=== PATIENT | male | born 1975 | race Caucasian/White ===

== ENCOUNTER 2021-01-01 11:19 | Inpatient (IN) ==
[2021-01-01 12:04] LABS: Basophils # 0.1 10*3/uL (0.0-0.2); Basophils % 0.8 % (0.0-0.8); Eosinophils % 0.4 % (0.00-10.9); Hematocrit 47.6 VOL% (42.0-52.0); Hemoglobin 14.7 GM/DL (14.0-18.0); Immature Granulocytes % 0.2 %; Immature Granulocytes Absolute 0.02 #; Mean Corpuscular HGB Conc 30.9 GM/DL (32-36); Mean Platelet Volume 11.1 FL (9.6-12.0); Monocytes % 12.5 % (1.7-12.7); Neutrophils % 76.1 % (38.7-73.9); Platelet Count 252 T/CUMM (130-400); Red Blood Count 5.12 MC/CUMM (3.8-5.5); Red Cell Distribution Width 14.5 % (9.3-17.3); White Blood Count 10.2 T/CUMM (4-12)
[2021-01-01] MEDS ORDERED: niCARdipine 25 MG/10 ML VIAL IV ONE (12:05)
[2021-01-01] MEDS: niCARdipine INJ 25 MG in SODIUM CHLORIDE 0.9% 240 ML IV SCH ×2 (12:24→18:21)
[2021-01-01 12:29] LABS: Albumin 3.6 G/DL (3.4-5.0); Bilirubin,Total 0.5 MG/DL (0.20-1.00); Potassium 4.3 MMOL/L (3.5-5.1)
[2021-01-01] MEDS ORDERED: ALBUTEROL 2.5 MG/3 ML NEB RESP TX PRN (13:34)
[2021-01-01] MEDS ORDERED: ONDANSETRON 4 MG/2 ML VIAL IV PRN (13:34)
[2021-01-01] MEDS ORDERED: MORPHINE 2 MG/1 ML SYRINGE IV PRN (13:34)
[2021-01-01] MEDS ORDERED: PANTOPRAZOLE 40 MG VIAL IV SCH (14:00)
[2021-01-01 15:00] VITALS: BP 164/86
[2021-01-01] MEDS: FUROSEMIDE 40 MG/4 ML VIAL IV SCH ×2 (15:20→16:29)
[2021-01-01] MEDS: ENOXAPARIN 40 MG/0.4 ML SYRINGE SUBCUT SCH (15:20)
[2021-01-01] MEDS: cloNIDine 0.1 MG TABLET PO SCH ×2 (15:36→21:05)
[2021-01-01 15:54] LABS: Bilirubin,Urine Negative (Negative); Blood, Urine Moderate mg/dL (Negative); Glucose,Urine (UA) Negative (Negative); Ketones,Urine Negative (Negative); Nitrite,Urine Negative (Negative); Protein,Urine Negative; RBC,Urine 1 /HPF (0-4); Urine Appearance CLEAR (Clear); Urine Color Colorless (Yellow); Urine Specific Gravity 1.016 (1.001-1.035); Urine Urobilinogen < 2.0 EU/DL (0.2-1.0)
[2021-01-01] MEDS ORDERED: ACETAMINOPHEN 325 MG TABLET PO PRN (19:59)
[2021-01-01] MEDS ORDERED: METOPROLOL SUCCINATE XL 50 MG TABLET PO SCH (21:00)
[2021-01-02 06:09] LABS: Basophils # 0.1 10*3/uL (0.0-0.2); Basophils % 0.8 % (0.0-0.8); Eosinophils # 0.1 10*3/uL (0.0-0.87); Eosinophils % 1.6 % (0.00-10.9); Hemoglobin 14.4 GM/DL (14.0-18.0); Immature Granulocytes % 0.4 %; Immature Granulocytes Absolute 0.03 #; Lymphocytes # 1.1 10*3/uL (1.4-4.0); Lymphocytes % 13.1 % (21.2-54.2); Mean Corpuscular HGB Conc 31.3 GM/DL (32-36); Mean Corpuscular Volume 92.6 FL (87-102); Mean Platelet Volume 11.5 FL (9.6-12.0); Monocytes % 17.1 % (1.7-12.7); Platelet Count 254 T/CUMM (130-400); Red Blood Count 4.97 MC/CUMM (3.8-5.5); Red Cell Distribution Width 14.6 % (9.3-17.3); White Blood Count 8.4 T/CUMM (4-12)
[2021-01-02 06:26] LABS: Calcium 8.7 MG/DL (8.5-10.1); Osmolality,Calculated 274.8 MOS/KG (273-304); Potassium 3.9 MMOL/L (3.5-5.1)
[2021-01-02 06:39] LABS: Eosinophils 1 % (0-10); Lymphocytes 12 % (20-55); Platelet Estimate Adequate; Segmented Neutrophils 73 % (50-85); Total Cells Counted 100
[2021-01-02] MEDS: FUROSEMIDE 40 MG/4 ML VIAL IV SCH (07:54)
[2021-01-02] MEDS: cloNIDine 0.1 MG TABLET PO SCH (08:00)
[2021-01-02] MEDS ORDERED: lisinopriL 10 MG TABLET PO SCH (09:00)
[2021-01-02] MEDS ORDERED: ROSUVASTATIN 20 MG TABLET PO SCH (09:00)
[2021-01-02] MEDS ORDERED: NIFEdipine 10 MG CAPSULE PO PRN (09:09)
[2021-01-02] MEDS: ENOXAPARIN 40 MG/0.4 ML SYRINGE SUBCUT SCH (14:19)
[2021-01-02] MEDS ORDERED: FUROSEMIDE 80 MG TABLET PO SCH (16:00)
[2021-01-03] MEDS ORDERED: PANTOPRAZOLE 40 MG TABLET PO SCH (09:00)
[2021-01-03] MEDS ORDERED: lisinopriL 10 MG TABLET PO SCH (09:00)
== END 2021-01-02 16:23 | disposition left against medical advice (07) | DRG 291 ==
LOC: N.ED 11:19 → N.EDINP 13:34 → N.CC 14:58
PROVIDERS: ADMIT Internal Medicine; ATTEND Internal Medicine

== ENCOUNTER 2021-04-25 16:32 | Inpatient (IN) ==
[2021-04-25] MEDS ORDERED: diphenhydrAMINE 50 MG/1 ML VIAL ONE (17:04)
[2021-04-25] MEDS ORDERED: LORazepam 2 MG/1 ML VIAL ONE (17:04)
[2021-04-25] MEDS ORDERED: SODIUM CHLORIDE 0.9% 1,000 ML IV STA ×2 (17:14→19:18)
[2021-04-25] MEDS ORDERED: DILTIAZEM 50 MG/10 ML VIAL IV STA (17:14)
[2021-04-25] MEDS ORDERED: ALBUTEROL/IPRATROPIUM 3 ML NEB RESP TX STA (17:22)
[2021-04-25 17:25] LABS: Basophils # 0.1 10*3/uL (0.0-0.2); Basophils % 0.7 % (0.0-0.8); Eosinophils # 0.1 10*3/uL (0.0-0.87); Eosinophils % 0.5 % (0.00-10.9); Hematocrit 37.3 VOL% (42.0-52.0); Hemoglobin 11.8 GM/DL (14.0-18.0); Immature Granulocytes % 0.4 %; Immature Granulocytes Absolute 0.06 #; Lymphocytes % 12.6 % (21.2-54.2); Mean Corpuscular HGB Conc 31.6 GM/DL (32-36); Mean Corpuscular Volume 90.1 FL (87-102); Mean Platelet Volume 10.9 FL (9.6-12.0); Monocytes % 10.8 % (1.7-12.7); Platelet Count 318 T/CUMM (130-400); Red Blood Count 4.14 MC/CUMM (3.8-5.5); Red Cell Distribution Width 15.9 % (9.3-17.3); White Blood Count 15.6 T/CUMM (4-12)
[2021-04-25 17:37] LABS: INR 1.1; PT Patient Result 12.1 SECS (10.5-12.0); Partial Thromboplastin Time 27.6 SECS (23.8-32.1)
[2021-04-25] MEDS ORDERED: diphenhydrAMINE 50 MG/1 ML VIAL IV STA (17:40)
[2021-04-25] MEDS ORDERED: LORazepam 2 MG/1 ML VIAL IV STA ×2 (17:40→19:13)
[2021-04-25 17:44] LABS: Alanine Aminotransferase 28 U/L (16-61); Albumin 3.4 G/DL (3.4-5.0); Alkaline Phosphatase 129 U/L (45-117); Amylase 40 U/L (25-115); Aspartate Amino Transferase 30 U/L (0-37); Blood Urea Nitrogen 31 MG/DL (7-18); Calcium 9.3 MG/DL (8.5-10.1); Carbon Dioxide 30 MMOL/L (21-32); Estimated Glom Filtration Rate 40 ML/MIN; Glucose 114 MG/DL (74-106); Osmolality,Calculated 286.4 MOS/KG (273-304); Potassium 4.1 MMOL/L (3.5-5.1); Sodium 140 MMOL/L (136-145); Total Protein 7.5 G/DL (6.4-8.2)
[2021-04-25 17:45] LABS: High Sensitive Troponin I* 27.5 ng/L (0-78)
[2021-04-25 18:38] LABS: Bilirubin,Urine Negative (Negative); Blood, Urine Negative (Negative); Glucose,Urine (UA) Negative (Negative); Ketones,Urine Negative (Negative); Nitrite,Urine Negative (Negative); Protein,Urine 30 MG/DL; Urine Appearance Clear (Clear); Urine Color Yellow (Yellow); Urine Specific Gravity 1.015 (1.001-1.035); Urine Urobilinogen 0.2 EU/DL (<2.0); Urine pH 5.5 (4.5-8.0)
[2021-04-25 18:41] LABS: Hyaline Casts,Urine 20 /LPF (0-3); Mucus,Urine Occasional /LPF (Occasional); RBC,Urine 38 /HPF (0-4); Squamous Epithelial Cell,Urine Occasional /HPF (0-10)
[2021-04-25 19:05] LABS: Barbiturates Screen,Urine Negative (Negative); Benzodiazepines Screen,Urine Negative (Negative); Cannabinoid Screen,Urine Negative (Negative); Opiate Screen,Urine Negative (Negative); Phencyclidine Screen,Urine Negative (Negative)
[2021-04-25] MEDS ORDERED: PIPERACILLIN/TAZOBACTAM 3,375 MG in SODIUM CHLORIDE 0.9% 100 ML IV STA (19:10)
[2021-04-25] MEDS ORDERED: MAGNESIUM SULF RIDER 1 GM/100 ML PREMIX IV STA (19:18)
[2021-04-25] MEDS: ENOXAPARIN 40 MG/0.4 ML SYRINGE SUBCUT SCH (20:30)
[2021-04-25] MEDS: PIPERACILLIN/TAZOBACTAM 3,375 MG in SODIUM CHLORIDE 0.9% 100 ML IV SCH (20:47)
[2021-04-25 21:08] LABS: ABG Base Excess 2.9 MMOL/L (-2.5-2.5); ABG Oxygen Saturation 95.7 % (95-100); ABG PCO2 51.5 MM HG (35-48); ABG PH 7.362 (7.35-7.45); ABG PO2 80.1 MM HG (80-95); ABG TCO2 26.5 MMOL/L (23-27)
[2021-04-25] MEDS ORDERED: OLANZapine 10 MG VIAL IM ONE (21:43)
[2021-04-25] MEDS ORDERED: diphenhydrAMINE 50 MG/1 ML VIAL IV PRN (22:01)
[2021-04-25] MEDS ORDERED: SODIUM CHLORIDE 0.9% 1,000 ML IV ONE (22:01)
[2021-04-25] MEDS ORDERED: LORazepam 2 MG/1 ML VIAL IV PRN (22:01)
[2021-04-25] MEDS ORDERED: MAGNESIUM SULF RIDER 2 GM/50 ML PREMIX IV ONE (22:01)
[2021-04-25] MEDS: DILTIAZEM INJ 100 MG in SODIUM CHLORIDE 0.9% 100 ML IV SCH (22:20)
[2021-04-25] MEDS ORDERED: DILTIAZEM INJ 100 MG in SODIUM CHLORIDE 0.9% 100 ML IV SCH (22:30)
[2021-04-25] MEDS ORDERED: SODIUM CHLORIDE 0.9% 1,000 ML IV SCH (22:30)
[2021-04-26 02:26] LABS: ABG Base Excess 1.5 MMOL/L (-2.5-2.5); ABG HCO3 25.7 MMOL/L (20-26); ABG PCO2 55.7 MM HG (35-48); ABG PH 7.319 (7.35-7.45); ABG PO2 90.4 MM HG (80-95); ABG TCO2 26.2 MMOL/L (23-27)
[2021-04-26] MEDS: PIPERACILLIN/TAZOBACTAM 3,375 MG in SODIUM CHLORIDE 0.9% 100 ML IV SCH ×3 (03:53→20:01)
[2021-04-26 04:20] LABS: Basophils # 0.1 10*3/uL (0.0-0.2); Basophils % 0.4 % (0.0-0.8); Eosinophils # 0.2 10*3/uL (0.0-0.87); Eosinophils % 1.3 % (0.00-10.9); Hematocrit 33.2 VOL% (42.0-52.0); Hemoglobin 10.3 GM/DL (14.0-18.0); Immature Granulocytes % 0.5 %; Immature Granulocytes Absolute 0.06 #; Lymphocytes # 1.1 10*3/uL (1.4-4.0); Lymphocytes % 8.8 % (21.2-54.2); Mean Platelet Volume 10.6 FL (9.6-12.0); Monocytes % 2.3 % (1.7-12.7); Neutrophils % 86.7 % (38.7-73.9); Platelet Count 215 T/CUMM (130-400); Red Blood Count 3.69 MC/CUMM (3.8-5.5); Red Cell Distribution Width 16.1 % (9.3-17.3); White Blood Count 12.8 T/CUMM (4-12)
[2021-04-26 04:39] LABS: Albumin 2.5 G/DL (3.4-5.0); Bilirubin,Total 0.5 MG/DL (0.20-1.00); Calcium 8.4 MG/DL (8.5-10.1); Osmolality,Calculated 280.5 MOS/KG (273-304); Potassium 3.1 MMOL/L (3.5-5.1); Total Protein 6.3 G/DL (6.4-8.2)
[2021-04-26 05:05] LABS: HIV Antigen/Antibody Result Nonreactive (Nonreactive)
[2021-04-26] MEDS: DILTIAZEM INJ 100 MG in SODIUM CHLORIDE 0.9% 100 ML IV SCH ×2 (07:33→19:44)
[2021-04-26] MEDS ORDERED: SODIUM CHLORIDE 0.45% 1,000 ML IV SCH (08:00)
[2021-04-26] MEDS: POTASSIUM CHLORIDE RIDER 10 MEQ/100 ML PREMIX IV SCH ×4 (08:34→13:34)
[2021-04-26] MEDS: LACTATED RINGERS 1,000 ML IV SCH ×2 (08:34→21:07)
[2021-04-26] MEDS: APIXABAN 5 MG TABLET PO SCH ×2 (13:35→20:00)
[2021-04-26] MEDS: POTASSIUM BICARB EFFERVESCENT 20 MEQ TAB.EFF PO SCH (13:35)
[2021-04-26] MEDS: PANTOPRAZOLE 40 MG TABLET PO SCH (13:35)
[2021-04-26] MEDS: MAGNESIUM OXIDE 400 MG TABLET PO SCH (13:35)
[2021-04-26] MEDS: carvediloL 25 MG TABLET PO SCH ×2 (13:35→17:25)
[2021-04-26] MEDS: CHOLECALCIFEROL 5,000 UNIT TABLET PO SCH (13:36)
[2021-04-26] MEDS ORDERED: DILTIAZEM 30 MG TABLET PO SCH (15:00)
[2021-04-26] MEDS: DILTIAZEM 30 MG TABLET PO SCH ×2 (15:55→20:00)
[2021-04-26] MEDS: ENOXAPARIN 40 MG/0.4 ML SYRINGE SUBCUT SCH (20:00)
[2021-04-27] MEDS: DILTIAZEM 30 MG TABLET PO SCH ×3 (03:01→16:24)
[2021-04-27] MEDS: PIPERACILLIN/TAZOBACTAM 3,375 MG in SODIUM CHLORIDE 0.9% 100 ML IV SCH (03:01)
[2021-04-27 03:57] LABS: Basophils # 0.1 10*3/uL (0.0-0.2); Basophils % 0.6 % (0.0-0.8); Eosinophils # 0.5 10*3/uL (0.0-0.87); Eosinophils % 5.2 % (0.00-10.9); Hematocrit 34.1 VOL% (42.0-52.0); Hemoglobin 10.3 GM/DL (14.0-18.0); Immature Granulocytes % 0.4 %; Immature Granulocytes Absolute 0.04 #; Lymphocytes # 0.9 10*3/uL (1.4-4.0); Lymphocytes % 8.8 % (21.2-54.2); Mean Corpuscular HGB Conc 30.2 GM/DL (32-36); Mean Corpuscular Volume 92.9 FL (87-102); Mean Platelet Volume 10.6 FL (9.6-12.0); Monocytes % 6.4 % (1.7-12.7); Neutrophils % 78.6 % (38.7-73.9); Platelet Count 198 T/CUMM (130-400); Red Blood Count 3.67 MC/CUMM (3.8-5.5); Red Cell Distribution Width 16.5 % (9.3-17.3); White Blood Count 9.9 T/CUMM (4-12)
[2021-04-27 04:23] LABS: Calcium 8.5 MG/DL (8.5-10.1); Osmolality,Calculated 283.5 MOS/KG (273-304); Potassium 3.7 MMOL/L (3.5-5.1)
[2021-04-27] MEDS: LACTATED RINGERS 1,000 ML IV SCH (04:53)
[2021-04-27] MEDS: CHOLECALCIFEROL 5,000 UNIT TABLET PO SCH (09:01)
[2021-04-27] MEDS: APIXABAN 5 MG TABLET PO SCH (09:01)
[2021-04-27] MEDS: POTASSIUM BICARB EFFERVESCENT 20 MEQ TAB.EFF PO SCH (09:01)
[2021-04-27] MEDS: PANTOPRAZOLE 40 MG TABLET PO SCH (09:01)
[2021-04-27 09:02] VITALS: BP 126/85
[2021-04-27] MEDS: carvediloL 25 MG TABLET PO SCH (09:02)
[2021-04-27] MEDS: MAGNESIUM OXIDE 400 MG TABLET PO SCH (09:06)
[2021-04-27] MEDS ORDERED: FUROSEMIDE 40 MG/4 ML VIAL IV ONE ×2 (09:18→09:27)
== END 2021-04-27 15:55 | disposition left against medical advice (07) | DRG 894 ==
LOC: N.ED 16:32 → N.CC 19:44
PROVIDERS: ADMIT Emergency Medicine; ATTEND Emergency Medicine

== ENCOUNTER 2021-09-18 10:15 | Inpatient (IN) ==
[2021-09-18] MEDS ORDERED: DILTIAZEM 25 MG/5 ML VIAL IV STA (10:42)
[2021-09-18] MEDS ORDERED: FUROSEMIDE 40 MG/4 ML VIAL IV STA (10:42)
[2021-09-18] MEDS ORDERED: MAGNESIUM SULF RIDER 2 GM/50 ML PREMIX IV STA (10:42)
[2021-09-18] MEDS ORDERED: DILTIAZEM INJ 100 MG in SODIUM CHLORIDE 0.9% 100 ML IV SCH (11:00)
[2021-09-18 11:26] LABS: INR 1.1; PT Patient Result 11.7 SECS (10.1-12.1); Partial Thromboplastin Time 25.4 SECS (23.7-32.9)
[2021-09-18 11:33] LABS: Basophils # 0.1 10*3/uL (0.0-0.2); Basophils % 1.2 % (0.0-0.8); Eosinophils # 0.2 10*3/uL (0.0-0.87); Eosinophils % 3.2 % (0.00-10.9); Hematocrit 41.4 VOL% (42.0-52.0); Immature Granulocytes % 0.2 %; Immature Granulocytes Absolute 0.01 #; Lymphocytes # 1.1 10*3/uL (1.4-4.0); Lymphocytes % 19.4 % (21.2-54.2); Mean Corpuscular Volume 88.7 FL (87-102); Mean Platelet Volume 10.9 FL (9.6-12.0); Monocytes % 18.3 % (1.7-12.7); Neutrophils % 57.7 % (38.7-73.9); Platelet Count 290 T/CUMM (130-400); Red Blood Count 4.67 MC/CUMM (3.8-5.5); White Blood Count 5.7 T/CUMM (4-12)
[2021-09-18 11:37] LABS: Anisocytosis 1+; Band Neutrophils 1 % (0-10); Eosinophils 6 % (0-10); Lymphocytes 19 % (20-55); Platelet Estimate Normal; Poikilocytosis Slight; Total Cells Counted 100
[2021-09-18 11:38] LABS: Macrocytosis Slight; Ovalocytes Few
[2021-09-18 11:41] LABS: Bilirubin,Total 0.9 MG/DL (0.20-1.00); Calcium 9.2 MG/DL (8.5-10.1); Osmolality,Calculated 279.5 MOS/KG (273-304); Potassium 3.6 MMOL/L (3.5-5.1); Thyroid Stimulating Hormone 6.94 uIU/ml (0.358-3.74); Total Protein 8.2 G/DL (6.4-8.2)
[2021-09-18 11:42] LABS: Bilirubin,Urine Negative (Negative); Blood, Urine Trace mg/dL (Negative); Glucose,Urine (UA) Negative (Negative); Ketones,Urine Negative (Negative); Mucus,Urine Occasional /LPF (Occasional); Nitrite,Urine Negative (Negative); Protein,Urine Negative (Negative); RBC,Urine 1 /HPF (0-4); Squamous Epithelial Cell,Urine Occasional /HPF (0-10); Urine Appearance Clear (Clear); Urine Color Yellow (Yellow); Urine Urobilinogen 0.2 eU/dL (<2.0)
[2021-09-18 11:52] LABS: Barbiturates Screen,Urine Negative (Negative); Benzodiazepines Screen,Urine Negative (Negative); Cannabinoid Screen,Urine Negative (Negative); Opiate Screen,Urine Negative (Negative); Phencyclidine Screen,Urine Negative (Negative)
[2021-09-18] MEDS ORDERED: GLUCAGON 1 MG VIAL IM PRN (13:19)
[2021-09-18] MEDS ORDERED: DEXTROSE 10% 250 ML BAG IV PRN (13:19)
[2021-09-18 14:01] LABS: Arterial Base Excess iSTAT 7 MMOL/L (-2.5-2.5); Arterial Bicarbonate iSTAT 33.5 MMOL/L (20-26); Arterial O2 Saturation iSTAT 97 % (95-100); Arterial PCO2 iSTAT 56 MM HG (35-48); Arterial PO2 iSTAT 89 MM HG (80-95); Arterial Total CO2 iSTAT 35 MMO/L (23-27); Arterial pH iSTAT 7.386 (7.35-7.45)
[2021-09-18] MEDS: cefTRIAXone 1,000 MG in SODIUM CHLORIDE 0.9% 100 ML IV SCH (14:53)
[2021-09-18] MEDS: carvediloL 25 MG TABLET PO SCH ×2 (14:53→23:24)
[2021-09-18] MEDS: INSULIN LISPRO 100 UNIT/ML SUBCUT SCH (17:30)
[2021-09-18] MEDS: FUROSEMIDE 40 MG/4 ML VIAL IV SCH (17:31)
[2021-09-18] MEDS: AZITHROMYCIN INJ 500 MG in SODIUM CHLORIDE 0.9% 250 ML IV SCH (17:31)
[2021-09-18] MEDS: ATORVASTATIN 40 MG TABLET PO SCH (22:09)
[2021-09-18] MEDS: FAMOTIDINE 20 MG TABLET PO SCH (22:09)
[2021-09-18] MEDS: APIXABAN 5 MG TABLET PO SCH (22:09)
[2021-09-18] MEDS: SACUBITRIL/VALSARTAN 49-51 MG TABLET PO SCH (22:09)
[2021-09-18] MEDS: LACTULOSE 20 GM/30 ML UDCUP PO SCH (23:24)
[2021-09-19] MEDS: INSULIN LISPRO 100 UNIT/ML SUBCUT SCH ×4 (00:30→18:09)
[2021-09-19] MEDS: FUROSEMIDE 40 MG/4 ML VIAL IV SCH ×4 (02:00→22:30)
[2021-09-19 06:40] LABS: Albumin 2.7 G/DL (3.4-5.0); Bilirubin,Direct 0.56 MG/DL (0.0-0.20); Bilirubin,Indirect 0.4 MG/DL (0.0-1.0); Calcium 8.7 MG/DL (8.5-10.1); Osmolality,Calculated 286.4 MOS/KG (273-304); Potassium 3.4 MMOL/L (3.5-5.1); Risk Ratio 2.71; Total Protein 7.4 G/DL (6.4-8.2); VLDL Cholesterol 13.4 MG/DL
[2021-09-19 06:50] LABS: Basophils # 0.1 10*3/uL (0.0-0.2); Basophils % 1.3 % (0.0-0.8); Eosinophils # 0.1 10*3/uL (0.0-0.87); Eosinophils % 2.2 % (0.00-10.9); Hematocrit 38.9 VOL% (42.0-52.0); Immature Granulocytes % 0.3 %; Immature Granulocytes Absolute 0.02 #; Lymphocytes # 1.3 10*3/uL (1.4-4.0); Mean Corpuscular HGB Conc 29.6 GM/DL (32-36); Mean Corpuscular Volume 87.4 FL (87-102); Mean Platelet Volume 11.1 FL (9.6-12.0); Monocytes # 0.9 10*3/uL (0.11-0.8); Monocytes % 14.3 % (1.7-12.7); Neutrophils % 60.9 % (38.7-73.9); Platelet Count 295 T/CUMM (130-400); Red Blood Count 4.45 MC/CUMM (3.8-5.5); Red Cell Distribution Width 17.1 % (9.3-17.3)
[2021-09-19 06:53] LABS: Hemoglobin 11.5 GM/DL (14.0-18.0)
[2021-09-19] MEDS ORDERED: POTASSIUM CHLORIDE 20 MEQ TABLET PO ONE (08:24)
[2021-09-19] MEDS: METOPROLOL SUCCINATE XL 50 MG TABLET PO SCH (10:40)
[2021-09-19] MEDS: APIXABAN 5 MG TABLET PO SCH ×2 (10:40→20:21)
[2021-09-19] MEDS: metOLazone 5 MG TABLET PO SCH (10:40)
[2021-09-19] MEDS: SACUBITRIL/VALSARTAN 49-51 MG TABLET PO SCH ×2 (10:41→20:23)
[2021-09-19] MEDS: FAMOTIDINE 20 MG TABLET PO SCH ×2 (10:41→20:21)
[2021-09-19] MEDS: LACTULOSE 20 GM/30 ML UDCUP PO SCH ×2 (10:42→20:30)
[2021-09-19] MEDS: CHOLECALCIFEROL 5,000 UNIT TABLET PO SCH (10:59)
[2021-09-19] MEDS: cefTRIAXone 1,000 MG in SODIUM CHLORIDE 0.9% 100 ML IV SCH (14:52)
[2021-09-19] MEDS ORDERED: SKIN HEALING OINT (AQUAPHOR) 50 GM TUBE TOP SCH (15:30)
[2021-09-19] MEDS: AZITHROMYCIN INJ 500 MG in SODIUM CHLORIDE 0.9% 250 ML IV SCH (16:33)
[2021-09-19] MEDS: SKIN HEALING OINT (AQUAPHOR) 50 GM TUBE TOP SCH (18:09)
[2021-09-19] MEDS ORDERED: ACETAMINOPHEN 325 MG TABLET PO PRN (19:52)
[2021-09-19] MEDS: ATORVASTATIN 40 MG TABLET PO SCH (20:22)
[2021-09-20] MEDS: INSULIN LISPRO 100 UNIT/ML SUBCUT SCH ×3 (00:36→12:18)
[2021-09-20 06:08] LABS: Calcium 9.3 MG/DL (8.5-10.1); Potassium 3.3 MMOL/L (3.5-5.1)
[2021-09-20 06:20] LABS: Basophils # 0.1 10*3/uL (0.0-0.2); Basophils % 1.1 % (0.0-0.8); Eosinophils # 0.2 10*3/uL (0.0-0.87); Eosinophils % 2.2 % (0.00-10.9); Hematocrit 44.5 VOL% (42.0-52.0); Hemoglobin 13.3 GM/DL (14.0-18.0); Immature Granulocytes % 0.1 %; Immature Granulocytes Absolute 0.01 #; Lymphocytes # 1.4 10*3/uL (1.4-4.0); Lymphocytes % 18.4 % (21.2-54.2); Mean Corpuscular HGB Conc 29.9 GM/DL (32-36); Mean Corpuscular Volume 86.6 FL (87-102); Mean Platelet Volume 10.7 FL (9.6-12.0); Monocytes % 14.2 % (1.7-12.7); Platelet Count 328 T/CUMM (130-400); Red Blood Count 5.14 MC/CUMM (3.8-5.5); Red Cell Distribution Width 17.1 % (9.3-17.3); White Blood Count 7.3 T/CUMM (4-12)
[2021-09-20] MEDS: FUROSEMIDE 40 MG/4 ML VIAL IV SCH ×2 (06:21→14:28)
[2021-09-20] MEDS ORDERED: MAGNESIUM SULF RIDER 2 GM/50 ML PREMIX IV ONE (07:39)
[2021-09-20] MEDS: POTASSIUM CHLORIDE 20 MEQ TABLET PO SCH ×2 (09:29→11:32)
[2021-09-20] MEDS: METOPROLOL SUCCINATE XL 50 MG TABLET PO SCH (09:29)
[2021-09-20] MEDS: metOLazone 5 MG TABLET PO SCH (09:29)
[2021-09-20] MEDS: CHOLECALCIFEROL 5,000 UNIT TABLET PO SCH (09:30)
[2021-09-20] MEDS: LACTULOSE 20 GM/30 ML UDCUP PO SCH (09:30)
[2021-09-20] MEDS: SACUBITRIL/VALSARTAN 49-51 MG TABLET PO SCH (09:30)
[2021-09-20] MEDS: FAMOTIDINE 20 MG TABLET PO SCH (09:30)
[2021-09-20] MEDS: APIXABAN 5 MG TABLET PO SCH (09:30)
[2021-09-20] MEDS: SKIN HEALING OINT (AQUAPHOR) 50 GM TUBE TOP SCH (10:25)
[2021-09-20 12:31] VITALS: BP 106/83
[2021-09-20] MEDS: AZITHROMYCIN INJ 500 MG in SODIUM CHLORIDE 0.9% 250 ML IV SCH (14:35)
[2021-09-20] MEDS: cefTRIAXone 1,000 MG in SODIUM CHLORIDE 0.9% 100 ML IV SCH (14:35)
[2021-09-20] MEDS ORDERED: METOPROLOL SUCCINATE XL 25 MG TABLET PO SCH (21:00)
== END 2021-09-20 16:00 | disposition left against medical advice (07) | DRG 291 ==
LOC: N.ED 10:15 → SUATTDRO 13:37 → N.EDINP 13:37 → N.TELES 16:26
PROVIDERS: ADMIT Internal Medicine; ATTEND Internal Medicine

== ENCOUNTER 2022-01-13 13:26 | Inpatient (IN) ==
[2022-01-13] MEDS ORDERED: FUROSEMIDE 40 MG/4 ML VIAL IV STA (14:10)
[2022-01-13] MEDS ORDERED: ASPIRIN 325 MG TABLET PO STA (14:10)
[2022-01-13 14:55] LABS: Basophils # 0.1 10*3/uL (0.0-0.2); Basophils % 1.2 % (0.0-0.8); Eosinophils # 0.1 10*3/uL (0.0-0.87); Eosinophils % 1.5 % (0.00-10.9); Hematocrit 40.4 VOL% (42.0-52.0); Hemoglobin 11.9 GM/DL (14.0-18.0); Immature Granulocytes % 0.4 %; Immature Granulocytes Absolute 0.03 #; Lymphocytes # 1.4 10*3/uL (1.4-4.0); Lymphocytes % 17.5 % (21.2-54.2); Mean Corpuscular HGB Conc 29.5 GM/DL (32-36); Mean Corpuscular Volume 93.7 FL (87-102); Mean Platelet Volume 11.3 FL (9.6-12.0); Monocytes # 1.2 10*3/uL (0.11-0.8); Monocytes % 15.9 % (1.7-12.7); Neutrophils % 63.5 % (38.7-73.9); Platelet Count 248 T/CUMM (130-400); Red Blood Count 4.31 MC/CUMM (3.8-5.5); Red Cell Distribution Width 15.6 % (9.3-17.3); White Blood Count 7.8 T/CUMM (4-12)
[2022-01-13 14:56] LABS: INR 1.1; PT Patient Result 12.5 SECS (10.1-12.1)
[2022-01-13 14:59] LABS: Bilirubin,Total 0.8 MG/DL (0.20-1.00); Calcium 8.8 MG/DL (8.5-10.1); Osmolality,Calculated 280.4 MOS/KG (273-304); Potassium 4.1 MMOL/L (3.5-5.1); Total Protein 7.8 G/DL (6.4-8.2)
[2022-01-13] MEDS ORDERED: VANCOMYCIN INJ 1,000 MG in SODIUM CHLORIDE 0.9% 250 ML IV STA (15:04)
[2022-01-13] MEDS ORDERED: PIPERACILLIN/TAZOBACTAM 3,375 MG in SODIUM CHLORIDE 0.9% 100 ML IV STA (15:04)
[2022-01-13] MEDS ORDERED: DILTIAZEM 25 MG/5 ML VIAL IV ONE (15:11)
[2022-01-13] MEDS ORDERED: DILTIAZEM 50 MG/10 ML VIAL IV STA (15:11)
[2022-01-13] MEDS ORDERED: PHENYLEPHRINE DRIP 40 MG/250 ML PREMIX IV PRN (15:11)
[2022-01-13 15:22] LABS: Lymphocytes 21 % (20-55); Platelet Estimate Normal; Total Cells Counted 100
[2022-01-13 15:23] LABS: Hypochromia Slight; Microcytosis Slight
[2022-01-13] MEDS: DILTIAZEM INJ 100 MG in SODIUM CHLORIDE 0.9% 100 ML IV SCH (15:38)
[2022-01-13] MEDS ORDERED: DIGOXIN 0.5 MG/2 ML AMP IV ONE ×2 (15:51→16:10)
[2022-01-13 16:45] VITALS: BP 114/84
[2022-01-13] MEDS: carvediloL 25 MG TABLET PO SCH (17:25)
[2022-01-13 18:00] LABS: Mucus,Urine Occasional /LPF (Occasional); RBC,Urine 1 /HPF (0-4); Squamous Epithelial Cell,Urine Occasional /HPF (0-10); Urine Color Yellow (Yellow)
[2022-01-13 18:01] LABS: Urine Appearance Clear (Clear); Urine pH 5.5 (4.5-8.0)
[2022-01-13 18:02] LABS: Bilirubin,Urine Negative (Negative); Glucose,Urine (UA) Negative (Negative); Ketones,Urine Negative (Negative); Nitrite,Urine Negative (Negative); Protein,Urine Negative (Negative); Urine Specific Gravity 1.015 (1.001-1.035)
[2022-01-13 18:03] LABS: Blood, Urine Negative (Negative); Urine Urobilinogen 0.2 eU/dL (<2.0)
[2022-01-13 18:28] LABS: Barbiturates Screen,Urine Negative (Negative); Benzodiazepines Screen,Urine Negative (Negative); Cannabinoid Screen,Urine Negative (Negative); Opiate Screen,Urine Negative (Negative); Phencyclidine Screen,Urine Negative (Negative)
[2022-01-13] MEDS: APIXABAN 5 MG TABLET PO SCH (20:42)
[2022-01-13] MEDS ORDERED: ATORVASTATIN 40 MG TABLET PO SCH (21:00)
[2022-01-14 05:41] LABS: Calcium 8.3 MG/DL (8.5-10.1); High Sensitive Troponin I* 63.5 ng/L (0-78); Osmolality,Calculated 283.3 MOS/KG (273-304)
[2022-01-14 05:47] LABS: Basophils # 0.1 10*3/uL (0.0-0.2); Basophils % 0.8 % (0.0-0.8); Eosinophils # 0.1 10*3/uL (0.0-0.87); Eosinophils % 1.7 % (0.00-10.9); Hematocrit 36.9 VOL% (42.0-52.0); Immature Granulocytes % 0.4 %; Immature Granulocytes Absolute 0.03 #; Lymphocytes # 0.8 10*3/uL (1.4-4.0); Lymphocytes % 10.6 % (21.2-54.2); Mean Corpuscular HGB Conc 29.3 GM/DL (32-36); Mean Corpuscular Volume 95.1 FL (87-102); Mean Platelet Volume 11.2 FL (9.6-12.0); Monocytes # 0.8 10*3/uL (0.11-0.8); Monocytes % 10.8 % (1.7-12.7); Neutrophils % 75.7 % (38.7-73.9); Platelet Count 221 T/CUMM (130-400); Red Blood Count 3.88 MC/CUMM (3.8-5.5); Red Cell Distribution Width 15.9 % (9.3-17.3); White Blood Count 7.8 T/CUMM (4-12)
[2022-01-14 05:49] LABS: Hemoglobin 10.8 GM/DL (14.0-18.0)
[2022-01-14] MEDS: carvediloL 25 MG TABLET PO SCH ×2 (08:55→17:50)
[2022-01-14] MEDS: APIXABAN 5 MG TABLET PO SCH ×2 (08:55→21:12)
[2022-01-14] MEDS: metOLazone 5 MG TABLET PO SCH (08:56)
[2022-01-14] MEDS: FLUCONAZOLE 200 MG TABLET PO SCH (08:56)
[2022-01-14] MEDS: CHOLECALCIFEROL 5,000 UNIT TABLET PO SCH (08:56)
[2022-01-14] MEDS ORDERED: FUROSEMIDE 40 MG/4 ML VIAL IV ONE (09:53)
[2022-01-14 10:06] LABS: Arterial Base Excess iSTAT 6 MMOL/L (-2.5-2.5); Arterial Bicarbonate iSTAT 36.9 MMOL/L (20-26); Arterial O2 Saturation iSTAT 99 % (95-100); Arterial PCO2 iSTAT 93 MM HG (35-48); Arterial PO2 iSTAT 202 MM HG (80-95); Arterial Total CO2 iSTAT 40 MMO/L (23-27); Arterial pH iSTAT 7.208 (7.35-7.45)
[2022-01-14] MEDS: AMPICILLIN/SULBACTAM 1,500 MG in SODIUM CHLORIDE 0.9% 100 ML IV SCH ×2 (10:29→16:37)
[2022-01-14] MEDS: DILTIAZEM INJ 100 MG in SODIUM CHLORIDE 0.9% 100 ML IV SCH (16:09)
[2022-01-14] MEDS: FUROSEMIDE 40 MG/4 ML VIAL IV SCH (21:12)
[2022-01-14] MEDS: ZINC OXIDE PASTE 113 GM TUBE TOP SCH (21:12)
[2022-01-15] MEDS: AMPICILLIN/SULBACTAM 1,500 MG in SODIUM CHLORIDE 0.9% 100 ML IV SCH ×3 (01:27→16:46)
[2022-01-15 04:28] LABS: Basophils # 0.1 10*3/uL (0.0-0.2); Basophils % 0.7 % (0.0-0.8); Eosinophils # 0.2 10*3/uL (0.0-0.87); Hematocrit 36.8 VOL% (42.0-52.0); Immature Granulocytes % 0.3 %; Immature Granulocytes Absolute 0.02 #; Lymphocytes # 0.8 10*3/uL (1.4-4.0); Lymphocytes % 11.9 % (21.2-54.2); Mean Corpuscular HGB Conc 29.9 GM/DL (32-36); Mean Corpuscular Volume 94.1 FL (87-102); Mean Platelet Volume 10.5 FL (9.6-12.0); Monocytes # 0.9 10*3/uL (0.11-0.8); Monocytes % 12.5 % (1.7-12.7); Neutrophils % 71.6 % (38.7-73.9); Platelet Count 215 T/CUMM (130-400); Red Blood Count 3.91 MC/CUMM (3.8-5.5); Red Cell Distribution Width 15.8 % (9.3-17.3); White Blood Count 6.9 T/CUMM (4-12)
[2022-01-15 04:44] LABS: Calcium 8.2 MG/DL (8.5-10.1); Osmolality,Calculated 281.4 MOS/KG (273-304); Potassium 3.4 MMOL/L (3.5-5.1)
[2022-01-15] MEDS ORDERED: MAGNESIUM SULF RIDER 4 GM/100 ML PREMIX IV PRN (05:57)
[2022-01-15] MEDS ORDERED: POTASSIUM CHLORIDE RIDER 10 MEQ/100 ML PREMIX IV PRN (05:57)
[2022-01-15] MEDS ORDERED: POTASSIUM CHLORIDE RIDER 20 MEQ/100 ML PREMIX IV PRN (05:57)
[2022-01-15] MEDS ORDERED: MAGNESIUM SULF RIDER 2 GM/50 ML PREMIX IV PRN (05:57)
[2022-01-15] MEDS: FLUCONAZOLE 200 MG TABLET PO SCH (09:00)
[2022-01-15] MEDS: POTASSIUM CHLORIDE 20 MEQ TABLET PO SCH ×4 (09:00→20:24)
[2022-01-15] MEDS: FUROSEMIDE 40 MG/4 ML VIAL IV SCH ×2 (09:00→16:46)
[2022-01-15] MEDS: APIXABAN 5 MG TABLET PO SCH ×2 (09:00→20:24)
[2022-01-15] MEDS: CHOLECALCIFEROL 5,000 UNIT TABLET PO SCH (09:00)
[2022-01-15] MEDS: metOLazone 5 MG TABLET PO SCH (09:00)
[2022-01-15] MEDS: ZINC OXIDE PASTE 113 GM TUBE TOP SCH ×2 (09:49→20:24)
[2022-01-15] MEDS ORDERED: carvediloL 12.5 MG TABLET PO SCH (17:00)
[2022-01-15] MEDS: carvediloL 25 MG TABLET PO SCH (17:43)
[2022-01-15] MEDS: carvediloL 6.25 MG TABLET PO SCH (20:24)
[2022-01-16] MEDS: AMPICILLIN/SULBACTAM 1,500 MG in SODIUM CHLORIDE 0.9% 100 ML IV SCH ×2 (01:00→09:20)
[2022-01-16 05:16] LABS: Calcium 9.1 MG/DL (8.5-10.1); Osmolality,Calculated 277.8 MOS/KG (273-304); Potassium 3.9 MMOL/L (3.5-5.1)
[2022-01-16 05:40] LABS: Basophils # 0.1 10*3/uL (0.0-0.2); Basophils % 0.8 % (0.0-0.8); Eosinophils # 0.2 10*3/uL (0.0-0.87); Eosinophils % 2.9 % (0.00-10.9); Hematocrit 39.5 VOL% (42.0-52.0); Immature Granulocytes % 0.4 %; Immature Granulocytes Absolute 0.03 #; Lymphocytes # 1.2 10*3/uL (1.4-4.0); Lymphocytes % 14.6 % (21.2-54.2); Mean Corpuscular HGB Conc 30.4 GM/DL (32-36); Mean Corpuscular Volume 92.1 FL (87-102); Mean Platelet Volume 11.3 FL (9.6-12.0); Monocytes # 1.5 10*3/uL (0.11-0.8); Monocytes % 18.6 % (1.7-12.7); Neutrophils % 62.7 % (38.7-73.9); Platelet Count 238 T/CUMM (130-400); Red Blood Count 4.29 MC/CUMM (3.8-5.5); Red Cell Distribution Width 15.6 % (9.3-17.3)
[2022-01-16 05:56] LABS: Anisocytosis 1+; Band Neutrophils 4 % (0-10); Eosinophils 5 % (0-10); Hypochromia Slight; Lymphocytes 14 % (20-55); Platelet Estimate Normal; Tear Drop Cells Few; Total Cells Counted 100
[2022-01-16] MEDS: FUROSEMIDE 40 MG/4 ML VIAL IV SCH (08:22)
[2022-01-16] MEDS: CHOLECALCIFEROL 5,000 UNIT TABLET PO SCH (08:22)
[2022-01-16] MEDS: APIXABAN 5 MG TABLET PO SCH (08:22)
[2022-01-16] MEDS: metOLazone 5 MG TABLET PO SCH (08:23)
[2022-01-16] MEDS: ZINC OXIDE PASTE 113 GM TUBE TOP SCH (08:23)
[2022-01-16] MEDS: FLUCONAZOLE 200 MG TABLET PO SCH (08:23)
[2022-01-16] MEDS: carvediloL 6.25 MG TABLET PO SCH (08:23)
[2022-01-16] MEDS ORDERED: MAGNESIUM SULF RIDER 2 GM/50 ML PREMIX IV ONE (08:29)
[2022-01-16] MEDS ORDERED: SACUBITRIL/VALSARTAN 49-51 MG TABLET PO SCH (09:00)
[2022-01-16] MEDS ORDERED: FUROSEMIDE 40 MG TABLET PO SCH (09:00)
[2022-01-17] MEDS ORDERED: DAPAGLIFLOZIN 10 MG TABLET PO SCH (09:00)
[2022-01-17] MEDS ORDERED: NICOTINE 21 MG/24 HR PATCH TRANSDERM SCH (09:00)
== END 2022-01-16 16:10 | disposition left against medical advice (07) | DRG 291 ==
LOC: EDUNIT# → EDBD → N.ED 13:26 → SUATTDRO 15:52 → N.EDINP 15:52 → N.ICU 16:37
PROVIDERS: ADMIT Internal Medicine; ATTEND Internal Medicine

== ENCOUNTER 2022-02-12 16:47 | Inpatient (IN) ==
[2022-02-12 18:05] LABS: Basophils # 0.1 10*3/uL (0.0-0.2); Basophils % 1.2 % (0.0-0.8); Eosinophils # 0.1 10*3/uL (0.0-0.87); Eosinophils % 1.6 % (0.00-10.9); Hematocrit 38.4 VOL% (42.0-52.0); Hemoglobin 11.8 GM/DL (14.0-18.0); Immature Granulocytes % 0.2 %; Immature Granulocytes Absolute 0.02 #; Lymphocytes # 1.6 10*3/uL (1.4-4.0); Lymphocytes % 18.6 % (21.2-54.2); Mean Corpuscular HGB Conc 30.7 GM/DL (32-36); Mean Corpuscular Volume 89.7 FL (87-102); Mean Platelet Volume 11.7 FL (9.6-12.0); Monocytes # 1.5 10*3/uL (0.11-0.8); Monocytes % 17.8 % (1.7-12.7); Neutrophils % 60.6 % (38.7-73.9); Platelet Count 244 T/CUMM (130-400); Red Blood Count 4.28 MC/CUMM (3.8-5.5); Red Cell Distribution Width 15.7 % (9.3-17.3); White Blood Count 8.6 T/CUMM (4-12)
[2022-02-12 18:13] LABS: INR 1.3; PT Patient Result 13.7 SECS (10.1-12.1); Partial Thromboplastin Time 28.9 SECS (23.7-32.9)
[2022-02-12 18:20] LABS: Albumin 3.2 G/DL (3.4-5.0); Calcium 9.2 MG/DL (8.5-10.1); Osmolality,Calculated 279.8 MOS/KG (273-304)
[2022-02-12 18:30] LABS: Eosinophils 1 % (0-10); Lymphocytes 17 % (20-55); Total Cells Counted 100
[2022-02-12 18:31] LABS: Platelet Estimate Adequate
[2022-02-12 18:44] LABS: RBC,Urine 2 /HPF (0-4)
[2022-02-12 18:45] LABS: Bilirubin,Urine Negative (Negative); Blood, Urine Trace mg/dL (Negative); Glucose,Urine (UA) Negative (Negative); Ketones,Urine Negative (Negative); Nitrite,Urine Negative (Negative); Protein,Urine Negative (Negative); Urine Appearance Clear (Clear); Urine Color Yellow (Yellow); Urine Specific Gravity 1.015 (1.001-1.035); Urine Urobilinogen 0.2 eU/dL (<2.0); Urine pH 5.5 (4.5-8.0)
[2022-02-12] MEDS ORDERED: FUROSEMIDE 40 MG/4 ML VIAL IV STA (19:03)
[2022-02-12] MEDS ORDERED: PANTOPRAZOLE 40 MG VIAL IV STA (19:04)
[2022-02-12] MEDS ORDERED: PIPERACILLIN/TAZOBACTAM 3,375 MG in SODIUM CHLORIDE 0.9% 100 ML IV STA (20:44)
[2022-02-12 21:17] LABS: Barbiturates Screen,Urine Negative (Negative); Benzodiazepines Screen,Urine Negative (Negative); Cannabinoid Screen,Urine Negative (Negative); Opiate Screen,Urine Negative (Negative); Phencyclidine Screen,Urine Negative (Negative)
[2022-02-12] MEDS ORDERED: DEXAMETHASONE 10 MG/1 ML VIAL ONE (22:31)
[2022-02-12] MEDS ORDERED: hydrALAZINE 20 MG/1 ML VIAL IV PRN (22:40)
[2022-02-12] MEDS ORDERED: diphenhydrAMINE CAP 25 MG CAPSULE PO PRN (22:40)
[2022-02-12] MEDS ORDERED: NICOTINE 21 MG/24 HR PATCH TRANSDERM PRN (22:40)
[2022-02-12] MEDS ORDERED: ACETAMINOPHEN 325 MG TABLET PO PRN (22:40)
[2022-02-12] MEDS ORDERED: ZALEPLON 5 MG CAPSULE PO PRN (22:40)
[2022-02-12] MEDS ORDERED: ONDANSETRON 4 MG/2 ML VIAL IV PRN (22:40)
[2022-02-12] MEDS ORDERED: MORPHINE 2 MG/1 ML SYRINGE IV PRN (22:40)
[2022-02-12] MEDS ORDERED: guaiFENesin/DM ER 600-30 MG TABLET PO PRN (22:40)
[2022-02-12] MEDS ORDERED: VANCOMYCIN INJ 1,750 MG in SODIUM CHLORIDE 0.9% 250 ML IV SCH (23:00)
[2022-02-12] MEDS: CLINDAMYCIN INJ 600 MG/50 ML PREMIX IV SCH (23:01)
[2022-02-12] MEDS ORDERED: ALBUTEROL/IPRATROPIUM 3 ML NEB RESP TX ONE (23:59)
[2022-02-13] MEDS: ALBUTEROL/IPRATROPIUM 3 ML NEB RESP TX SCH ×4 (00:33→19:16)
[2022-02-13] MEDS ORDERED: LORazepam 2 MG/1 ML VIAL IV ONE ×2 (01:19→01:30)
[2022-02-13] MEDS ORDERED: METOPROLOL TARTRATE 5 MG/5 ML VIAL IV ONE (04:19)
[2022-02-13] MEDS ORDERED: LORazepam 2 MG/1 ML VIAL IV PRN (04:19)
[2022-02-13 06:18] LABS: Basophils # 0.1 10*3/uL (0.0-0.2); Basophils % 0.6 % (0.0-0.8); Eosinophils # 0.2 10*3/uL (0.0-0.87); Eosinophils % 1.5 % (0.00-10.9); Hematocrit 39.4 VOL% (42.0-52.0); Hemoglobin 12.3 GM/DL (14.0-18.0); Immature Granulocytes % 0.3 %; Immature Granulocytes Absolute 0.04 #; Lymphocytes # 0.8 10*3/uL (1.4-4.0); Lymphocytes % 6.7 % (21.2-54.2); Mean Corpuscular HGB Conc 31.2 GM/DL (32-36); Mean Platelet Volume 10.7 FL (9.6-12.0); Monocytes # 1.3 10*3/uL (0.11-0.8); Monocytes % 11.7 % (1.7-12.7); Neutrophils % 79.2 % (38.7-73.9); Platelet Count 223 T/CUMM (130-400); Red Blood Count 4.53 MC/CUMM (3.8-5.5); Red Cell Distribution Width 15.8 % (9.3-17.3); White Blood Count 11.5 T/CUMM (4-12)
[2022-02-13 06:39] LABS: Calcium 8.5 MG/DL (8.5-10.1); Osmolality,Calculated 286.3 MOS/KG (273-304); Potassium 3.2 MMOL/L (3.5-5.1)
[2022-02-13] MEDS: CLINDAMYCIN INJ 600 MG/50 ML PREMIX IV SCH ×2 (06:40→15:06)
[2022-02-13] MEDS: FUROSEMIDE 40 MG/4 ML VIAL IV SCH ×2 (09:16→15:03)
[2022-02-13] MEDS: DOCUSATE SODIUM 100 MG CAPSULE PO SCH ×2 (09:16→21:17)
[2022-02-13] MEDS: PANTOPRAZOLE 40 MG TABLET PO SCH (09:16)
[2022-02-13] MEDS: APIXABAN 5 MG TABLET PO SCH ×2 (09:16→21:17)
[2022-02-13] MEDS ORDERED: cefTRIAXone 2,000 MG in SODIUM CHLORIDE 0.9% 100 ML IV SCH (21:00)
[2022-02-13] MEDS: POTASSIUM CHLORIDE 20 MEQ TABLET PO SCH (21:17)
[2022-02-13] MEDS: SACUBITRIL/VALSARTAN 49-51 MG TABLET PO SCH (21:17)
[2022-02-13] MEDS: MAGNESIUM OXIDE 400 MG TABLET PO SCH (21:18)
[2022-02-13] MEDS: VANCOMYCIN INJ 1,750 MG in SODIUM CHLORIDE 0.9% 500 ML IV SCH (22:44)
[2022-02-14] MEDS: ALBUTEROL/IPRATROPIUM 3 ML NEB RESP TX SCH ×2 (00:59→07:01)
[2022-02-14 05:13] LABS: Basophils # 0.1 10*3/uL (0.0-0.2); Basophils % 0.9 % (0.0-0.8); Eosinophils # 0.4 10*3/uL (0.0-0.87); Eosinophils % 6.2 % (0.00-10.9); Hematocrit 40.2 VOL% (42.0-52.0); Hemoglobin 12.4 GM/DL (14.0-18.0); Immature Granulocytes % 0.2 %; Immature Granulocytes Absolute 0.01 #; Lymphocytes # 0.9 10*3/uL (1.4-4.0); Lymphocytes % 14.1 % (21.2-54.2); Mean Corpuscular HGB Conc 30.8 GM/DL (32-36); Mean Corpuscular Volume 87.6 FL (87-102); Mean Platelet Volume 11.2 FL (9.6-12.0); Monocytes % 14.4 % (1.7-12.7); Neutrophils % 64.2 % (38.7-73.9); Platelet Count 235 T/CUMM (130-400); Red Blood Count 4.59 MC/CUMM (3.8-5.5); White Blood Count 6.6 T/CUMM (4-12)
[2022-02-14 05:27] LABS: Calcium 8.3 MG/DL (8.5-10.1); Osmolality,Calculated 283.3 MOS/KG (273-304)
[2022-02-14] MEDS ORDERED: metOLazone 5 MG TABLET PO SCH (09:00)
[2022-02-14] MEDS: FUROSEMIDE 40 MG/4 ML VIAL IV SCH (09:05)
[2022-02-14] MEDS: APIXABAN 5 MG TABLET PO SCH (09:06)
[2022-02-14] MEDS: PANTOPRAZOLE 40 MG TABLET PO SCH (09:06)
[2022-02-14] MEDS: SACUBITRIL/VALSARTAN 49-51 MG TABLET PO SCH (09:06)
[2022-02-14] MEDS: POTASSIUM CHLORIDE 20 MEQ TABLET PO SCH (09:06)
[2022-02-14] MEDS: MAGNESIUM OXIDE 400 MG TABLET PO SCH (09:07)
[2022-02-14] MEDS: carvediloL 12.5 MG TABLET PO SCH ×2 (09:08→09:10)
[2022-02-14] MEDS: DOCUSATE SODIUM 100 MG CAPSULE PO SCH (10:42)
[2022-02-14 11:25] VITALS: BP 104/60
[2022-02-14] MEDS: VANCOMYCIN INJ 1,750 MG in SODIUM CHLORIDE 0.9% 500 ML IV SCH (11:38)
[2022-02-14] MEDS ORDERED: cephALEXin 500 MG CAPSULE PO SCH (12:00)
[2022-02-14] MEDS ORDERED: MAGNESIUM SULF INJ 3 GM in SODIUM CHLORIDE 0.9% 100 ML IV ONE (12:00)
[2022-02-14] MEDS ORDERED: POTASSIUM CHLORIDE 20 MEQ TABLET PO SCH ×2 (15:00→21:00)
== END 2022-02-14 13:36 | disposition home or self-care (01) | DRG 602 ==
LOC: N.ED 16:47 → N.3E 22:40
PROVIDERS: ADMIT Hospitalist; ATTEND Hospitalist